=== PATIENT | female | born 1960 | race Caucasian/White ===

== ENCOUNTER → 2019-01-02 | Outpatient (CLI) | payer OTHER ==
[~2019-01-02] MED LIST: ACET-2708 PO; ASCO-182 PO; DOCU-416 PO; DOCU100T19 PO; FAMO40TA8 PO; HYDR-385 PO; IBUP1TAB90 PO; IBUP600T22 PO; KET10 PO; MV-M1TAB27 PO; ONDA4TAB PO; OXYC-865 PO; PER PO; TAMS0.4C25 PO
--- NOTE | 2019-01-02 09:00 | RADIOLOGY IMAGING REPORT ---
FACILITY: [facility] - [place] PATIENT NAME: Marichuy Torres : 1960 MR: [id number] V: [id number] EXAM DATE: ORDERING PHYSICIAN: JARED WOLFF TECHNOLOGIST: Location: [facility] [place] Patient: Marichuy Torres : 1960 Visit/Account:[id number] Date of Sevice: 01/02/2019 CT scan of the abdomen and pelvis without contrast. HISTORY: Stones. COMPARISON: 10/25/2016. 2 mm and [address] images were obtained of the abdomen and pelvis. No intravenous or oral contrast. One of the following dose optimization techniques was utilized in the performance of this exam: Automated exposure control; adjustment of the mA and/or kV according to the patient's size; or use of an iterative reconstruction technique. Specific details can be referenced in the facility's radiology CT exam operational policy. The study is limited to the urinary tract for evaluation of stone disease. FINDINGS: Images are mildly degraded by CT artifacts, accentuated by the obese body habitus. Minimal streaky d ensities are present in the lung bases. The dome of the liver was not completely included. The live r and spleen are normal in size. The gallbladder and bile ducts are unremarkable. The pancreas is n ormal in size. Minimal streaky densities are present in the small bowel mesentery, unchanged. The k idneys and adrenal glands are normal in size. No renal or ureteral calcifications are identified. N o hydronephrosis. The abdominal aorta and iliac arteries are partially calcified but normal in size. Unopacified bowel loops are scattered in the abdomen and pelvis. Phleboliths are present in the true pelvis. The uterus is absent. The ovaries and appendix are not well visualized. The urinary bladd er is incompletely distended. Degenerative changes are present in the spine. IMPRESSION: Negative for evidence of renal stones or obstruction. Report Dictated By: Yaniv Chowdary MD at 01/02/2019 8:45 AM Report E-Signed By: Yaniv Chowdary MD at 01/02/2019 8:52 AM WSN:[id number]
== END ==
LOC: CT 01:31
PROVIDERS: ATTEND Nurse Practitioner Family
DX: N20.0 Calculus of kidney (principal)
CPT/HCPCS: 74176